=== PATIENT | female | born 1985 | race Asian ===

== ENCOUNTER 2023-12-04 18:38 | Emergency (ER) | payer MEDICAID ==
[~2023-12-04] VITALS: Ht 154.9 cm; Wt 53.1 kg
[2023-12-04 18:42] VITALS: BP 146/77; PULSE 84; RESP 17; O2SAT 100
[2023-12-04 20:59] LABS: BILIRUBIN,URINE NEGATIVE (Neg); CLARITY,URINE SLIGHTLY CLOUDY (Clear); COLOR,URINE YELLOW (Yellow); GLUCOSE, URINE NEGATIVE (Neg); KETONES,URINE NEGATIVE (Neg); LEUKOCYTE ESTERASE ,URINE NEGATIVE (Neg); NITRITES, URINE NEGATIVE (Neg); OCCULT BLOOD,URINE NEGATIVE (Neg); PH,URINE 7.5 (4.8-8.0); PROTEIN,URINE NEGATIVE (Neg); UA COLLECTION TYPE CLN CATCH MIDSTREAM; UROBILINOGEN,URINE 0.2 E.U/dL (0.2-1.0)
[2023-12-04 21:11] LABS: AMORPHOUS PHOSPHATES 4+; BACTERIA,URINE FEW /HPF (Neg); MUCUS STRANDS MODERATE /LPF (Neg); RBC,URINE 0-2 /HPF (0-2); SQUAMOUS EPITHELIAL CELL,UR MODERATE /LPF (FEW); WBC,URINE 0-4 /HPF (0-4)
[2023-12-04 21:33] VITALS: TEMP 98.1
== END 2023-12-04 21:34 | disposition home or self-care (01) ==
LOC: ER 18:39
DX: B33.8 Other specified viral diseases (principal)
CPT/HCPCS: 36415; 81001; 84702; 99283

== ENCOUNTER 2024-05-04 23:58 | Emergency (ER) | payer MEDICAID ==
[~2024-05-04] VITALS: Ht 154.9 cm; Wt 59.8 kg
[2024-05-05 01:02] LABS: BASOPHILS # (AUTO) 0.2 X10'3 (0-0.2); EOSINOPHILS # (AUTO) 0.1 X10'3 (0-0.9); EOSINOPHILS % (AUTO) 1.9 % (0-6); HEMATOCRIT 25.3 % (35.0-45.0); HEMOGLOBIN 7.8 g/dl (12.0-16.0); LYMPHOCYTES # (AUTO) 2.2 X10'3 (1.1-4.8); LYMPHOCYTES % (AUTO) 28.2 % (21-51); MEAN CORPUSCULAR HEMOGLOBIN 20.5 PG (27.0-31.0); MEAN CORPUSCULAR HGB CONC 30.8 g/dL (33.0-36.5); MEAN CORPUSCULAR VOLUME 66.5 FL (78-98); MONOCYTES # (AUTO) 0.7 X10'3 (0-0.9); MONOCYTES % (AUTO) 8.8 % (2-12); NEUTROPHILS # (AUTO) 4.7 X10'3 (1.8-7.7); NEUTROPHILS % (AUTO) 59.1 % (42-75); PLATELET COUNT 173 X10'3 (140-440); RED BLOOD COUNT 3.81 X10'6 (4.20-5.60); RED CELL DISTRIBUTION WIDTH 20.4 % (11.5-14.5); WHITE BLOOD COUNT 7.9 X10'3 (4.5-11.0)
[2024-05-05 01:18] LABS: ALANINE AMINOTRANSFERASE 15 U/L (12-78); ALBUMIN 3.8 G/DL (3.4-5.0); ALBUMIN/GLOBULIN RATIO 0.9 (1.1-1.5); ALKALINE PHOSPHATASE 55 IU/L (46-116); ANION GAP 8 (8-16); ASPARTATE AMINO TRANSFERASE 12 U/L (10-37); BILIRUBIN,TOTAL 0.3 MG/DL (0.1-1.0); BLOOD UREA NITROGEN 13 MG/DL (7-18); BUN/CREATININE RATIO 19.1 (10.0-20.0); CALCIUM 8.4 MG/DL (8.5-10.1); CHLORIDE 106 MMOL/L (99-107); CREATININE 0.68 MG/DL (0.40-0.90); GLUCOSE 96 MG/DL (70-104); SODIUM 140 MMOL/L (135-145); TOTAL PROTEIN 8.1 G/DL (6.4-8.2); eCRCL 86 ML/MIN; eGFR > 90 ML/MIN
[2024-05-05 01:41] LABS: ANISOCYTOSIS 2+; MICROCYTOSIS 2+; PLATELET ESTIMATE NORMAL
[2024-05-05 02:17] VITALS: BP 103/55; PULSE 68; RESP 16; TEMP 98.3; O2SAT 98
== END 2024-05-05 02:19 | disposition home or self-care (01) ==
LOC: ER 23:59
DX: D64.9 Anemia, unspecified (principal)
CPT/HCPCS: 36415; 80053; 85008; 85025; 86885; 86900; 86901; 99283

== ENCOUNTER 2024-05-17 18:58 | Emergency (ER) | payer MEDICAID ==
[~2024-05-17] VITALS: Ht 154.9 cm; Wt 51.0 kg
[2024-05-17 19:25] LABS: BASOPHILS # (AUTO) 0.2 X10'3 (0-0.2); BASOPHILS % (AUTO) 1.4 % (0-1); EOSINOPHILS # (AUTO) 0.1 X10'3 (0-0.9); EOSINOPHILS % (AUTO) 0.7 % (0-6); LYMPHOCYTES # (AUTO) 1.5 X10'3 (1.1-4.8); LYMPHOCYTES % (AUTO) 13.3 % (21-51); MEAN PLATELET VOLUME 8.7 FL (7.4-10.4); MONOCYTES # (AUTO) 0.7 X10'3 (0-0.9); MONOCYTES % (AUTO) 5.8 % (2-12); NEUTROPHILS % (AUTO) 78.8 % (42-75); PLATELET COUNT 179 X10'3 (140-440); WHITE BLOOD COUNT 11.4 X10'3 (4.5-11.0)
[2024-05-17 19:43] LABS: ALBUMIN 4.1 G/DL (3.4-5.0); ANION GAP 8 (8-16); BLOOD UREA NITROGEN 6 MG/DL (7-18); BUN/CREATININE RATIO 8.5 (10.0-20.0); CALCIUM 8.6 MG/DL (8.5-10.1); CHLORIDE 108 MMOL/L (99-107); CREATININE 0.71 MG/DL (0.40-0.90); GLUCOSE 103 MG/DL (70-104); POTASSIUM 4.1 MMOL/L (3.5-5.1); SODIUM 141 MMOL/L (135-145); eCRCL 83 ML/MIN; eGFR > 90 ML/MIN
[2024-05-17 19:44] LABS: APTT 21 SECONDS (22-32); INR 1.1 INR; PROTHROMBIN TIME 11.4 SECONDS (9.0-12.0)
[2024-05-17 19:46] LABS: BETA HCG,QUANTITATIVE < 1.0 mIU/ml
[2024-05-17 19:53] LABS: HEMOGLOBIN 8.2 g/dl (12.0-16.0); MEAN CORPUSCULAR HEMOGLOBIN 19.6 PG (27.0-31.0); MEAN CORPUSCULAR HGB CONC 31.7 g/dL (33.0-36.5); MEAN CORPUSCULAR VOLUME 61.9 FL (78-98); RED CELL DISTRIBUTION WIDTH 20.7 % (11.5-14.5)
[2024-05-17 20:09] LABS: ANISOCYTOSIS 2+; HYPOCHROMASIA 1+; MICROCYTOSIS 2+; PLATELET ESTIMATE NORMAL; POIKILOCYTOSIS 1+
[2024-05-17 21:04] LABS: BILIRUBIN,URINE NEGATIVE (Neg); CLARITY,URINE CLEAR (Clear); COLOR,URINE YELLOW (Yellow); GLUCOSE, URINE NEGATIVE (Neg); KETONES,URINE NEGATIVE (Neg); LEUKOCYTE ESTERASE ,URINE NEGATIVE (Neg); NITRITES, URINE NEGATIVE (Neg); OCCULT BLOOD,URINE NEGATIVE (Neg); PH,URINE 5.5 (4.8-8.0); PROTEIN,URINE NEGATIVE (Neg); UROBILINOGEN,URINE 0.2 E.U/dL (0.2-1.0)
[2024-05-17 21:18] LABS: UA COLLECTION TYPE CLN CATCH MIDSTREAM
[2024-05-17 22:19] VITALS: BP 97/59; PULSE 88; RESP 16; O2SAT 98
== END 2024-05-17 22:32 | disposition home or self-care (01) ==
LOC: ER 18:59
DX: R06.02 Shortness of breath (principal); R55 Syncope and collapse
CPT/HCPCS: 36415; 80048; 81003; 84484; 84702; 85008; 85025; 85610; 85730; 86885; 86900; 86901; 93005; 99284

== ENCOUNTER 2024-11-13 14:46 | Emergency (ER) | payer MEDICAID ==
[~2024-11-13] VITALS: Ht 157.5 cm; Wt 54.5 kg
[2024-11-13 14:49] VITALS: BP 133/63; PULSE 79; RESP 14; TEMP 98; O2SAT 100
[2024-11-13 17:13] LABS: LEUKOCYTE ESTERASE ,URINE NEGATIVE (Neg); NITRITES, URINE NEGATIVE (Neg); OCCULT BLOOD,URINE NEGATIVE (Neg)
[2024-11-13 17:15] LABS: URINE HCG NEGATIVE (NEG)
[2024-11-13 17:20] LABS: UA COLLECTION TYPE CLN CATCH MIDSTREAM
[2024-11-13 17:25] LABS: AMORPHOUS PHOSPHATES 3+; RENAL CELLS, URINE FEW /HPF; SQUAMOUS EPITHELIAL CELL,UR MODERATE /LPF (FEW)
--- NOTE | 2024-11-13 18:15 | Physician Documentation ---
History of Present Illness ~ Chief Complaint: See Chief Complaint Stated Complaint: REQUESTING PREG TEST Time Seen by MD: 17:59 HPI Patient is seen today with complaints of her period being four days late. She states her period is very regular. LMP was 10/10/2024. Patient has been spotting a little bit for the last few days. She states she has been nauseous with some vomiting off and on without diarrhea and without fever or chills or body aches for the last two days. Patient states she is able to keep down plenty of liquid. She denies any chest pain or shortness of breath or abdominal pain or nausea, vomiting, diarrhea. She denies any pelvic pain. She states she does have tubal ligation. Medication Reconciliation Allergies: Coded Allergies: No Known Allergies (Unverified , 05/17/24) Past Medical History Past Medical History: *HEMATOLOGY*, Anemia Past Surgical History: no surgical history Drug Use: none Lives In: Home Review of Systems Constitutional: Denies: chills, fever, weakness Eyes: Denies: pain, blurred vision ENT: Denies: ear pain, nose pain, throat pain, mouth pain Respiratory: Denies: cough, shortness of breath Cardiovascular: Denies: chest pain, palpitations Gastrointestinal: Denies: abdominal pain, nausea, vomiting Genitourinary: Denies: burning, dysuria Female Genitalia: Denies: vaginal discharge, pelvic pain Neurological: Denies: headache, dizziness Musculoskeletal: Denies: pain, swelling Integumentary: Denies: rash, lesions Allergic/Immunologic: Denies: hives, itching Hematologic/Lymphatic: Denies: no symptoms reported Psychiatric: Denies: depression, anxiety Physical Exam Vital Signs: Temperature: 98.0, Source: Temporal, Heart Rate: 79, Respiratory Rate: 14, BP: 133/63, Pulse Oximetry: 100, Weight: 54.550 Oxygen Flow Rate: 0 Physical Exam General: Awake and Alert, no acute distress. HEENT: Conjunctiva pink, Sclera clear, Mucus Membranes moist. Neck: Supple without masses and tenderness. Resp: Unlabored. Lungs clear to auscultation bilaterally. Heart: Regular Rate and rhythm, normal S1 and S2 without murmur, rub or gallop. Abdomen: Soft and non tender no organomegaly Extremities: No cyanosis,clubbing or edema. Skin: Warm and Dry. Progress Results/Orders Results/Orders Vital Signs 11/13/24 14:49 Temp 98.0 Pulse 79 Resp 14 B/P (MAP) 133/63 Pulse Ox 100 O2 Flow Rate 0 Laboratory Tests Test 11/13/24 14:55 Urine Specimen Description Cln catch midstream Urine Color Yellow Urine Clarity Slightly cloudy Urine pH 7.0 Urine Specific [place] 1.015 Urine Protein Negative Urine Glucose (UA) Negative Urine Ketones Negative Urine Occult Blood Negative Urine Nitrite Negative Urine Bilirubin Negative Urine Urobilinogen 0.2 Urine Leukocyte Esterase Negative Urine RBC 0-2 Urine WBC 0-4 Urine Squamous Epithelial Cells Moderate Urine Transitional Epithelial Cells Few Urine Renal Cells Few Urine Amorphous Phosphates 3+ Urine Bacteria 2+ Urine Mucus Urine Culture Indicated Not ind Volume Urine Centrifuged 10 ml Urine HCG, Qualitative Negative Urine Comment Medical Decision Making Findings Patient is seen today with complaints of her period being four days late. She states her period is very regular. LMP was 10/10/2024. Patient has been spotting a little bit for the last few days. She states she has been nauseous with some vomiting off and on without diarrhea and without fever or chills or body aches for the last two days. Patient states she is able to keep down plent y of liquid. She denies any chest pain or shortness of breath or abdominal pain or nausea, vomiting, diarrhea. She denies any pelvic pain. She states she does have tubal ligation. Patient did have urinalysis which was unremarkable and negative urine test in the ED today. Patient will continue to monitor symptoms closely and will return to ED with any worsening, concerning or changing symptoms or development of pelvic or abdominal pain. Patient will continue checking home tests every 2-3 days and follow up with primary care in 3-5 days if no better as needed sooner. Departure Disposition: HOME / SELF CARE / HOMELESS Impression: Primary Impression: Nausea & vomiting Qualified Codes: R11.2 - Nausea with vomiting, unspecified Condition: Stable Discharge Instructions: Nausea and Vomiting, Adult, [id number] Additional Instructions: Patient did have urinalysis which was unremarkable and negative urine test in the ED today. Patient will continue to monitor symptoms closely and will return to ED with any worsening, concerning or changing symptoms or develop ment of pelvic or abdominal pain. Patient will continue checking home tests every 2-3 days and follow up with primary care in 3-5 days if no better as needed sooner. Referrals: NO PRIMARY CARE PROVIDER (PCP) Signature Scribe Signature: No scribe Attestation: No scribe [facility] Nov 13, 2024 18:15
== END 2024-11-13 18:26 | disposition home or self-care (01) ==
LOC: ER 14:47
DX: R11.2 Nausea with vomiting, unspecified (principal)
CPT/HCPCS: 81001; 81025; 99283